=== PATIENT | female | born 1970 | race Caucasian/White ===

== ENCOUNTER 2016-11-26 07:18 | Emergency (ER) | payer OTHER ==
[~2016-11-26] VITALS: Ht 167.6 cm; Wt 60.0 kg
[~2016-11-26 07:18] MED LIST: CIPRO500 MG PO; CYMBALTA60 MG PO; DESYREL100 MG PO; GABAPENTIN400 MG PO; HYDROXYZINE PAM25 MG PO; INDERAL10 MG PO; LAMOTRIGINE300 MG PO; MIRTAZAPINE15 MG PO; MOTRIN800 MG PO; NEURONTIN400 MG PO; NEURONTIN800 MG PO
[2016-11-26 08:30] LABS: MCHC 32.6 G/DL (30.0-36.0); MCV 91.9 FL (83-99); MEAN PLAT.VOLUME 8.5 uM^3 (9.5-12.4); PLATELET COUNT 352 K/uL (156-360); RBC DIS.WIDTH-CV 13.4 % (11.8-14.6); RBC DIS.WIDTH-SD 45.7 % (39-53); RED BLOOD COUNT 4.57 M/uL (3.80-5.20); WHITE BLOOD COUNT 11.2 K/uL (4.1-10.2)
[2016-11-26 08:41] LABS: CHLORIDE 105 mEq/L (99-109); SODIUM 142 mEq/L (136-147)
[2016-11-26 08:43] LABS: GLUCOSE 90 mg/dL (70-99)
[2016-11-26 08:44] LABS: ANION GAP 7 MEQ/L (2-14)
[2016-11-26 08:47] LABS: GFR ESTIMATE (CALCULATED) > 59 mL/min/
[2016-11-26 08:48] LABS: UREA NITROGEN (BUN) 15 mg/dL (9-23)
[2016-11-26 09:58] LABS: ADD MIUA? YES; BILIRUBIN NEGATIVE; BLOOD SMALL; COLOR YELLOW ((YELLOW)); GLUCOSE (STRIP) NEGATIVE; KETONES NEGATIVE; LEUKOCYTES NEGATIVE; NITRITE NEGATIVE; PROTEIN (STRIP) NEGATIVE; SPECIFIC GRAVITY 1.009 (1.000-1.030); UROBILINOGEN 0.2 MG/DL (0.2-1.0)
[2016-11-26 10:01] LABS: BACTERIA NONE SEEN /HPF; EPITHELIAL CELLS RARE /HPF; MUCUS TRACE /LPF; RED BLOOD CELLS 0-5 /HPF (0-5); WHITE BLOOD CELLS 0-5 /HPF (0-5)
[2016-11-26 10:06] LABS: QUANTITATIVE HCG < 4.0 MIU/ML
[2016-11-26] MEDS ORDERED: ANTIVERT25 MG PO (11:02)
[2016-11-26 11:11] VITALS: BP 121/80
== END 2016-11-26 11:19 | disposition home or self-care (01) ==
LOC: EME 07:18
PROVIDERS: Nurse Practitioner Family
DX: H53.8 Other visual disturbances (principal); R42 Dizziness and giddiness; F17.200 Nicotine dependence, unspecified, uncomplicated
CPT/HCPCS: 80048; 81003; 84702; 85027; 99281; 99284